=== PATIENT | male | born 1935 | race Caucasian/White ===

== ENCOUNTER 2022-02-20 13:06 | Inpatient (IN) ==
[2022-02-20 14:16] LABS: ABS Lymphocytes 0.7 10^3/ul (1.0-4.8); ABS Monocytes 0.6 10^3/ul (0-0.8); ABS Neutrophils 5.8 10^3/ul (1.5-7.7); Eosinophil % 0.6 %; Hematocrit 19 % (42-52); Hemoglobin 6.1 g/dL (14.0-18.0); Lymphocyte % 9.9 %; Mean Corpuscular HGB Conc 33 g/dL (31-36); Mean Corpuscular Hemoglobin 32 pg (27-31); Mean Corpuscular Volume 98 fL (80-94); Mean Platelet Volume 7.2 fL (7.4-10.4); Platelet Count 333 10^3/uL (150-450); Red Cell Distribution Width 14 % (10-15); White Blood Count 7.1 10^3/uL (3.5-10.8)
[2022-02-20 14:31] LABS: INR 1.17 (0.89-1.11)
[2022-02-20 14:34] LABS: High Sens Troponin Baseline 69 pg/mL (<20)
[2022-02-20 14:36] LABS: ALT 13 U/L (7-52); AST 17 U/L (13-39); Albumin 3.8 g/dL (3.2-5.2); Albumin/Globulin Ratio 1.8 (1-3); Alkaline Phosphatase 51 U/L (35-149); Anion Gap 11 mmol/L (2-11); Blood Urea Nitrogen 46 mg/dL (6-24); CO2 Carbon Dioxide 20 mmol/L (22-32); Calcium 8.7 mg/dL (8.6-10.3); Chloride 108 mmol/L (101-111); Globulin 2.1 g/dL (2-4); Glucose 169 mg/dL (70-100); Potassium 4.1 mmol/L (3.5-5.0); Sodium 139 mmol/L (135-145); Total Protein 5.9 g/dL (6.4-8.9); eGFR CKD-EPI 47.1 (>60)
[2022-02-20] MEDS ORDERED: NS 0.9% 500 ml BAG 500 ML IV ONE (14:43)
[2022-02-20 15:07] LABS: Anisocytosis 1+; Polychromasia 2+
[2022-02-20 15:07] LABS: Urine Appearance Cloudy; Urine Bilirubin Negative (Negative); Urine Blood 2+ (Negative); Urine Color Yellow; Urine Glucose Negative (Negative); Urine Ketones Negative (Negative); Urine Nitrite Negative (Negative); Urine Protein Negative (Negative); Urine Specific Gravity 1.017 (1.002-1.030); Urine Urobilinogen Negative (Negative)
[2022-02-20] MEDS ORDERED: Pantoprazole VIAL 40 MG VIAL IV ONE (15:08)
[2022-02-20 15:14] LABS: Urine Bacteria Absent (Absent); Urine Red Blood Cell 3+(>10/hpf) (Absent); Urine White Blood Cell Absent (Absent)
[2022-02-20 15:46] LABS: High Sensitivity Troponin 1 Hr 71 pg/mL (<20)
[2022-02-20 20:44] LABS: % Iron Saturation 4 % (15-55); Iron < 20 ug/dL (50-212); Total Iron Binding Capacity 455 mcg/dL (250-450); Transferrin 325 mg/dL (203-362); Unsaturated Iron Binding 435 ug/dL
[2022-02-20 20:59] LABS: TSH Ultra Thyroid Stim Horm 2.13 mcIU/mL (0.34-5.60)
[2022-02-20 21:05] LABS: Ferritin 10.3 ng/mL (24-336)
[2022-02-21 00:05] LABS: Hematocrit 21 % (42-52); Hemoglobin 6.7 g/dL (14.0-18.0)
[2022-02-21] MEDS: Pantoprazole 80 mg in NS BAG 80 MG/250 ML BAG IV SCH ×3 (00:40→13:16)
[2022-02-21 07:53] LABS: Hematocrit 21 % (42-52); Hemoglobin 6.9 g/dL (14.0-18.0); Mean Corpuscular HGB Conc 33 g/dL (31-36); Mean Corpuscular Hemoglobin 31 pg (27-31); Mean Corpuscular Volume 93 fL (80-94); Mean Platelet Volume 7.8 fL (7.4-10.4); Platelet Count 287 10^3/uL (150-450); Red Blood Count 2.23 10^6 /uL (4.18-5.48); Red Cell Distribution Width 16 % (10-15); White Blood Count 6.2 10^3/uL (3.5-10.8)
[2022-02-21 08:40] LABS: Calcium 8.1 mg/dL (8.6-10.3); Magnesium 1.9 mg/dL (1.9-2.7); Potassium 4.2 mmol/L (3.5-5.0); eGFR CKD-EPI 56.8 (>60)
[2022-02-21] MEDS ORDERED: Pantoprazole VIAL 40 MG VIAL IV SCH (09:00)
[2022-02-21] MEDS: Iron Sucrose 200 MG in NS 0.9% 100 ml BAG 100 ML IVPB SCH (09:27)
[2022-02-21 13:38] LABS: Hematocrit 21 % (42-52); Hemoglobin 6.8 g/dL (14.0-18.0)
[2022-02-22] MEDS ORDERED: Dextran 70/Hypromellose Tears Eye Drops 15 ml BTL (for Artificials Tears) BOTH EYES PRN (00:36)
[2022-02-22] MEDS: Pantoprazole 80 mg in NS BAG 80 MG/250 ML BAG IV SCH ×2 (02:12→11:30)
[2022-02-22 05:37] LABS: ABS Basophils 0.1 10^3/ul (0-0.2); ABS Eosinophils 0.5 10^3/ul (0-0.6); ABS Monocytes 0.8 10^3/ul (0-0.8); ABS Neutrophils 5.5 10^3/ul (1.5-7.7); Eosinophil % 6.1 %; Hematocrit 25 % (42-52); Lymphocyte % 12.7 %; Mean Corpuscular HGB Conc 33 g/dL (31-36); Mean Corpuscular Hemoglobin 30 pg (27-31); Mean Corpuscular Volume 93 fL (80-94); Mean Platelet Volume 7.6 fL (7.4-10.4); Nucleated Red Blood Cells % 0.1; Platelet Count 263 10^3/uL (150-450); Red Blood Count 2.65 10^6 /uL (4.18-5.48); Red Cell Distribution Width 16 % (10-15); White Blood Count 7.9 10^3/uL (3.5-10.8)
[2022-02-22 06:06] LABS: Calcium 7.9 mg/dL (8.6-10.3); Potassium 3.9 mmol/L (3.5-5.0); eGFR CKD-EPI 60.2 (>60)
[2022-02-22] MEDS ORDERED: Midazolam 5 mg/5 ml VIAL 1 mg/ml 5 ml VIAL (5 mg) ONE (09:17)
[2022-02-22] MEDS ORDERED: fentaNYL 100 mcg/2 ml 50 MCG/ML VIAL ONE (09:17)
[2022-02-22] MEDS: Iron Sucrose 200 MG in NS 0.9% 100 ml BAG 100 ML IVPB SCH (11:38)
[2022-02-22 14:54] LABS: Hematocrit 25 % (42-52); Hemoglobin 8.2 g/dL (14.0-18.0); Mean Corpuscular HGB Conc 33 g/dL (31-36); Mean Corpuscular Hemoglobin 31 pg (27-31); Mean Corpuscular Volume 94 fL (80-94); Mean Platelet Volume 7.8 fL (7.4-10.4); Platelet Count 285 10^3/uL (150-450); Red Blood Count 2.65 10^6 /uL (4.18-5.48); Red Cell Distribution Width 16 % (10-15); White Blood Count 7.8 10^3/uL (3.5-10.8)
[2022-02-23 06:33] LABS: eGFR CKD-EPI 58.5 (>60)
[2022-02-23 06:51] LABS: Hematocrit 25 % (42-52); Hemoglobin 8.2 g/dL (14.0-18.0); Mean Corpuscular HGB Conc 32 g/dL (31-36); Mean Corpuscular Hemoglobin 30 pg (27-31); Mean Corpuscular Volume 94 fL (80-94); Platelet Count 237 10^3/uL (150-450); Red Cell Distribution Width 16 % (10-15); White Blood Count 8.3 10^3/uL (3.5-10.8)
[2022-02-23] MEDS: Iron Sucrose 200 MG in NS 0.9% 100 ml BAG 100 ML IVPB SCH (10:56)
[2022-02-23 11:12] VITALS: BP 100/47
== END 2022-02-23 12:58 | disposition home or self-care (01) | DRG 378 ==
LOC: ED 13:06 → EDHOLD 13:06 → SUATTDRO 17:31 → MEDTELE 20:45 → SUATTDRO 02-21 16:00
PROVIDERS: ADMIT Internal Medicine; ATTEND Hospitalist

== ENCOUNTER 2022-03-06 17:02 | Inpatient (IN) ==
[2022-03-06 18:43] LABS: Hematocrit 20 % (42-52); Hemoglobin 6.5 g/dL (14.0-18.0); Mean Corpuscular HGB Conc 32 g/dL (31-36); Mean Corpuscular Hemoglobin 31 pg (27-31); Mean Corpuscular Volume 96 fL (80-94); Platelet Count 306 10^3/uL (150-450); Red Blood Count 2.12 10^6 /uL (4.18-5.48); Red Cell Distribution Width 18 % (10-15)
[2022-03-06 18:48] LABS: ABS Basophils 0.1 10^3/ul (0-0.2); ABS Eosinophils 0.1 10^3/ul (0-0.6); ABS Lymphocytes 0.6 10^3/ul (1.0-4.8); ABS Monocytes 0.4 10^3/ul (0-0.8); ABS Neutrophils 2.8 10^3/ul (1.5-7.7); Eosinophil % 3.2 %; Lymphocyte % 14.3 %
[2022-03-06 19:26] LABS: Albumin 3.6 g/dL (3.2-5.2); Albumin/Globulin Ratio 1.7 (1-3); Calcium 8.2 mg/dL (8.6-10.3); Globulin 2.1 g/dL (2-4); Potassium 3.9 mmol/L (3.5-5.0); Total Bilirubin 0.3 mg/dL (0.2-1.0); Total Protein 5.7 g/dL (6.4-8.9); eGFR CKD-EPI 55.2 (>60)
[2022-03-06] MEDS ORDERED: NS 0.9% 1000 ml BAG 1,000 ML IV SCH (21:45)
[2022-03-06] MEDS: Pantoprazole VIAL 40 MG VIAL IV SCH (22:34)
[2022-03-06 23:15] LABS: INR 1.01 (0.89-1.11)
[2022-03-07 02:28] LABS: Hematocrit 22 % (42-52); Hemoglobin 7.4 g/dL (14.0-18.0)
[2022-03-07] MEDS: Pantoprazole VIAL 40 MG VIAL IV SCH (09:01)
[2022-03-07 09:50] LABS: Calcium 8.1 mg/dL (8.6-10.3); Magnesium 1.9 mg/dL (1.9-2.7); Potassium 4.1 mmol/L (3.5-5.0); eGFR CKD-EPI 69.2 (>60)
[2022-03-07] MEDS ORDERED: Ferric Gluconate IV 125 MG in NS 0.9% 100 ml BAG 100 ML IVPB ONE (11:28)
[2022-03-07 16:06] VITALS: BP 145/71
== END 2022-03-07 16:08 | disposition home or self-care (01) | DRG 811 ==
LOC: ED 17:02 → EDHOLD 20:25
PROVIDERS: ADMIT Internal Medicine; ATTEND Internal Medicine